=== PATIENT | male | born 1995 | race African-American/Black ===

== ENCOUNTER 2017-04-20 11:24 | Emergency (ER) | payer OTHER ==
[2017-04-20 12:18] LABS: INFLUENZA A PATIENT NEGATIVE (NEGATIVE); INFLUENZA B PATIENT POSITIVE (NEGATIVE); OBC FLU VALID
[2017-04-20] MEDS: ACETAMINOPHEN 500 MG TABLET PO ×2 (12:41)
[2017-04-20] MEDS: PROMETH/CODEINE 6.25/10MG 5 ML SYRUP. PO ×2 (12:44)
== END 2017-04-20 12:48 | disposition home or self-care (01) ==
LOC: ER 12:48
DX: J10.1 Influenza due to other identified influenza virus with other respiratory manifestations (principal)
CPT/HCPCS: 87804; 87804-59; 99284

== ENCOUNTER 2019-01-29 12:50 | Emergency (ER) | payer OTHER ==
[~2019-01-29] VITALS: Ht 185.4 cm; Wt 79.4 kg
[~2019-01-29 12:50] MED LIST changes: -HYDR-3164 PO
[2019-01-29 13:31] VITALS: BP 131/81
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
[2019-01-29] MEDS ORDERED: HYDR-3164 PO (16:05)
== END 2019-01-29 16:10 | disposition home or self-care (01) ==
LOC: ER 12:50
DX: M25.512 Pain in left shoulder (principal); Z87.828 Personal history of other (healed) physical injury and trauma; Z98.890 Other specified postprocedural states
CPT/HCPCS: 73030; 99284

== ENCOUNTER → 2019-01-29 | Outpatient (CLI) | payer OTHER ==
[2017-04-20 11:51] VITALS: BP 140/66
[~2019-01-29] MED LIST: BENZ100C PO; HYDR-3164 PO; PROM25TA10 PO
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
== END | disposition home or self-care (01) ==
LOC: KCIC 11:54
PROVIDERS: ATTEND Nurse Practitioner Gerontology
DX: M25.512 Pain in left shoulder (principal); Z87.828 Personal history of other (healed) physical injury and trauma
CPT/HCPCS: 73030